=== PATIENT | female | born 1980 ===

== ENCOUNTER 2016-06-03 17:56 | Emergency (ER) | payer BC ==
[2016-06-03 18:27] VITALS: BP 144/74; PULSE 91; RESP 18; TEMP 99; O2SAT 97
[2016-06-03] MEDS ORDERED: AMOXICILLIN/CLAVULANATE POT 875/125 MG TAB PO ONE (18:33)
--- NOTE | 2016-06-03 18:37 | UCPHY ---
H & P Patient Type: New Chief Complaint Nursing Narrative: c/o Rt ear pain/ URI/[place] eye for several days Time Seen by Provider: 06/03/16 18:25 HPI/ROS: CHIEF COMPLAINT: Ear drainage HISTORY OF PRESENT ILLNESS: The patient is a 35-year-old female who comes to the Urgent Care complaining of drainage from right ear. She has had a "head cold" for the last week with a lot of ear pressure. She does have some ringing in her ears. She woke up this morning with drainage from her right ear. She has not had a fever. She has been taking decongestants [id number]. She also started herself on Ocuflox yesterday for what appears to be conjunctivitis on the right eye. She states that it is helping. REVIEW OF SYSTEMS: Constitutional: See HPI EENTM: See HPI Respiratory: denies: cough, shortness of breath Cardiac: denies: chest pain, irregular heart rate, lightheadedness, palpitations Gastrointestinal/Abdominal: denies: abdominal pain, diarrhea, nausea, vomiting, blood streaked stools Genitourinary: denies: dysuria, frequency, hematuria, pain Musculoskeletal: denies: joint pain, muscle pain Skin: denies: lesions, rash, jaundice, bruising Neurological: denies: headache, numbness, paresthesia, tingling, dizziness, weakness Hematologic/Lymphatic: denies: blood clots, easy bleeding, easy bruising Immunologic/allergic: denies: HIV/AIDS, transplant EXAM: GENERAL: Well-appearing, well-nourished and in no acute distress. HEAD: Atraumatic, normocephalic. EYES: Right eye with mild erythema and discharge. Vision intact. ENT: Right tympanic membrane erythematous with small perforation and drainage. No canal swelling or erythema. Left ear drum with erythema and bulging. NECK: Normal range of motion, supple without lymphadenopathy or JVD. LUNGS: Breath sounds clear to auscultation bilaterally and equal. No wheezes rales or rhonchi. HEART: Regular rate and rhythm without murmurs, rubs or gallops. ABDOMEN: Soft, nontender, normoactive bowel sounds. No guarding, no rebound. No masses appreciated. BACK: No CVA tenderness, no spinal tenderness, step-offs or deformities EXTREMITIES: Normal range of motion, no pitting or edema. No clubbing or cyanosis. NEUROLOGICAL: Cranial nerves II through XII grossly intact. Normal speech, normal gait. 5/5 strength, normal movement in all extremities, normal sensation PSYCH: Normal mood, normal affect. SKIN: Warm, dry, normal turgor, no visible rashes or lesions. Source: Patient Exam Limitations: No limitations - Personal History LMP (Females 10-55): 15-21 Days Ago Current Tetanus Diphtheria and Acellular Pertussis (TDAP): Yes - Medical/Surgical History Hx Asthma: No Hx Chronic Respiratory Disease: No Hx Diabetes: No Hx Cardiac Disease: No Hx Renal Disease: No Other PMH: denies - Family History Significant Family History: No pertinent family hx - Social History Smoking Status: Never smoked Alcohol Use: Sober Drug Use: None Constitutional: Initial Vital Signs Temperature (C) 37.2 C 06/03/16 18:25 Heart Rate 91 06/03/16 18:25 Respiratory Rate 18 06/03/16 18:25 Blood Pressure 144/74 H 06/03/16 18:25 O2 Sat (%) 97 06/03/16 18:25 O2 Delivery Mode Room Air Allergies/Adverse Reactions: cephalexin monohydrate [From Keflex] Allergy (Verified 06/03/16 18:24) c-clor Allergy (Uncoded 06/03/16 18:25) Home Medications: Medication Instructions Recorded Amoxicillin/Clavulanate Pot 875 mg PO BID #14 tab 06/03/16 [Augmentin 875Mg] Prozac 10 MG (*) 06/03/16 Medical Decision Making ED Course/Re-evaluation: Patient has a otitis media that is perforated her to bend membrane. I will start her on Augmentin. She states this has worked for her in the past. She is treating herself appropriately for conjunctivitis with left over Ocuflox in. She has removed her contacts. Her vision is intact. She states that she had some ringing in her ears even before she got sick. I will refer her to ENT after this acute illness is resolved. Differential Diagnosis: Partial list of the Differential diagnosis considered include but were not limited to; otitis media, otitis externa, conjunctivitis, and although unlikely based on the history and physical exam, I also considered influenza, sepsis, sepsis, meningitis, foreign body. I discussed these differential diagnoses and the plan with the patient as well as the usual and expected course. The patient understands that the diagnosis is provisional and that in medicine we are not always correct and that further workup is often warranted. Usual and customary warnings were given. All of the patient's questions were answered. The patient was instructed to return to the emergency department should the symptoms at all worsen or return, otherwise to followup with the physician as we discussed. - Data Points Medications Given: Discontinued Medications Amoxicillin/Clavulanate Potassium (Augmentin 875mg) 875 mg PO EDNOW ONE PRN Reason: Protocol Stop: 06/03/16 18:34 Last Admin: 06/03/16 19:11 Dose: 875 mg Departure - Departure Disposition: Home, Routine, Self-Care Clinical Impression: Perforated tympanic membrane Qualifiers: Laterality: right Qualified Code(s): H72.91 - Unspecified perforation of tympanic membrane, right ear Conjunctivitis Qualifiers: Conjunctivitis type: unspecified Laterality: right Qualified Code(s): H10.9 - Unspecified conjunctivitis Condition: Fair Instructions: Otitis Media (ED), Conjunctivitis (ED) Referrals: Alanna Rao MD [Primary Care Provider] - As per Instructions Prescriptions: Amoxicillin/Clavulanate Pot [Augmentin 875Mg] 875 mg PO BID #14 tab - PQRS PQRS Measurement: Not applicable
== END 2016-06-03 19:11 | disposition home or self-care (01) ==
LOC: CED 17:56
DX: H66.91 Otitis media, unspecified, right ear (principal); H72.91 Unspecified perforation of tympanic membrane, right ear; H10.9 Unspecified conjunctivitis
CPT/HCPCS: 99204-PO; G0463-PO